=== PATIENT | male | born 2000 | race Caucasian/White ===

== ENCOUNTER 2022-02-21 19:00 | Emergency (ER) | payer MEDICAID, SELFPAY ==
[2022-02-21 19:45] VITALS: BP 144/77; PULSE 86; RESP 16; O2SAT 99; BMI 24.9
--- NOTE | 2022-02-21 21:56 | ED_ITS ---
HPI - Abdominal Pain General Chief Complaint: Abdominal Pain Stated Complaint: hernia/lower abd pain Time Seen by Provider: 02/21/22 21:54 Source: patient Mode of arrival: ambulatory Limitations: no limitations History of Present Illness HPI narrative: Patient having small lesions on the shaft of penis for last 2 weeks symptoms noticed inguinal lymph nodes enlarged and tender no penile discharge Related Data Previous Rx's Medication Instructions Recorded doxycycline hyclate 100 mg tablet 100 mg PO BID #20 tabs 02/21/22 mupirocin 2 % topical ointment 1 appl topical BID #15 grams 02/21/22 Allergies Allergy/AdvReac Type Severity Reaction Status Date / Time pineapple Allergy Anaphylaxis Verified 02/21/22 19:48 amoxicillin [AMOXICILLIN] AdvReac Unknown HIVES Verified 02/21/22 19:48 Review of Systems Review of Systems Yes all other systems are reviewed and are negative [facility] Social History Social History Advance Directives: No Advance Directives Information Provided: No Physical Exam ED Vital Signs: Vital Signs - 24 hr 02/21/22 19:45 02/21/22 22:23 Pulse Rate 86 72 Respiratory Rate 16 16 Blood Pressure 144/77 H 138/78 Pulse Oximetry 99 98 Oxygen Delivery Method Room Air BMI result Body Mass Index 24.9 Appearance: Alert. Oriented X3. No acute distress. ENT: Pharynx normal. Oral Mucosa moist Neck: Normal inspection. Neck supple. CVS: Normal heart rate and rhythm. Pulses normal. Respiratory: No respiratory distress. Equal air entry bilateral, Abdomen: Soft and nontender. Bowel sounds are present, no mass palpable, no CVA tenderness : Small lesions on the dorsum of penis clinically staph infection, bilateral tender 1 x 1 cm inguinal lymph nodes Skin: Skin warm and dry. Normal skin color. Normal skin turgor. Neuro: Oriented X 3. MDM - Abdominal Pain MDM Narrative Medical decision making narrative: Clinically patient has MRSA infection of the dorsum of the penis and bilateral inguinal lymphadenopathy secondary to that will discharge patient home on doxycycline and Bactroban ointment Discharge Plan Discharge Clinical Impression: Folliculitis, Inguinal lymphadenitis Patient Disposition: Home, Self-Care Instructions: Lymphadenopathy (ED), Folliculitis (ED) Additional Instructions: Local care of lesions on the penis as advised Antibiotic as prescribed Ibuprofen for pain Follow-up with PCP Prescriptions: New doxycycline hyclate 100 mg tablet 100 mg PO BID Qty: 20 0RF mupirocin 2 % ointment 1 appl topical BID Qty: 15 0RF Stand Alone Forms: Work/School Release Interventions: ED Discharge Assessment Last Done: 02/21/22 22:31
[2022-02-21 22:23] VITALS: BP 138/78; PULSE 72; RESP 16; O2SAT 98
== END 2022-02-21 22:34 | disposition home or self-care (01) ==
PROVIDERS: Emergency Provider Internal Medicine
DX: L73.9 Follicular disorder, unspecified (principal); I88.9 Nonspecific lymphadenitis, unspecified
CPT/HCPCS: 99283; 99284

== ENCOUNTER 2025-02-15 14:56 | Emergency (ER) | payer MEDICAID, SELFPAY ==
[2025-02-15 14:58] VITALS: BP 141/83; PULSE 68; RESP 14; TEMP 36.8; O2SAT 96; BMI 26.6
--- NOTE | 2025-02-15 15:03 | ED.WOUNDLAC ---
HPI - Wound/Laceration General Chief Complaint: Wound/Laceration Stated Complaint: leg inj with hammer Time Seen by Provider: 02/15/25 19:57 Related Data Previous Rx's ?Medication ?Instructions ?Recorded doxycycline hyclate 100 mg tablet 100 mg PO BID #20 tabs 02/21/22 mupirocin 2 % topical ointment 1 appl topical BID #15 grams 02/21/22 Allergies Allergy/AdvReac Type Severity Reaction Status Date / Time pineapple Allergy Anaphylaxis Verified 02/15/25 15:00 amoxicillin (AMOXICILLIN) AdvReac Unknown HIVES Verified 02/15/25 15:00 [facility] Social History Social History Advance Directives: No Advance Directives Information Provided: Yes Physical Exam Vital Signs: Vital Signs: Last Vital Signs Temp 98.6 F 02/15/25 18:50 Pulse 72 02/15/25 18:50 Resp 16 02/15/25 18:50 BP 137/81 02/15/25 18:50 Pulse Ox 98 02/15/25 18:50 O2 Del Method Room Air 02/15/25 14:58 BMI result Body Mass Index 26.6 Course Course Course Narrative: This is a Rapid Medical Examination (RME) performed by Isa Harkins PA-C in triage. Full HPI, ROS, assessment and treatment plan per primary provider in the Main ED. Hx: 24 yo M here w/ lac/puncture wound to right sandhu sustained by a hammer [employer]. unsure of tetanus status Plan: lac repair, tdap Reevaluation(s) Reevaluation #1: Patient left the emergency department before myself or any of the other clinicians could review or explain physical exam findings, test results, need or lack there of for additional testing, treatment options, or a treatment plan. Medications Administered Discontinued Medications Generic Name Dose Route Start Last Admin Trade Name Freq PRN Reason Stop Dose Admin Diphtheria/Tetanus/Acell Pertussis 0.5 ml 02/15/25 15:07 02/15/25 18:41 Diphth,Pertus(Acell),Tet Adult 0.5 Ml Syringe IM 02/15/25 15:08 0.5 ml .ONCE ONE Administration Discharge Plan Discharge Clinical Impression: Laceration Patient Disposition: Left W/O Completing Treatment Prescriptions: No Action doxycycline hyclate 100 mg tablet 100 mg PO BID Qty: 20 0RF mupirocin 2 % ointment 1 appl topical BID Qty: 15 0RF Discharge Date/Time: 02/15/25 20:19
[2025-02-15] MEDS: Diphth,Pertus(ACell),Tet Adult 0.5 ML SYRINGE IM (18:41)
[2025-02-15 18:50] VITALS: BP 137/81; PULSE 72; RESP 16; TEMP 37; O2SAT 98
--- NOTE | 2025-02-15 20:19 | PC.NURSE ---
Pt and family decided it was too long to wait for a provider. LWCT.
--- OUTSIDE RECORDS SUMMARY | 2025-02-15 22:24 | XMS_ITS | Clinical Summary ---
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 08/19/2019 Active doxycycline (Vibra-Tabs) 100 MG tablet Take 100 mg by mouth 2 times daily. 02/22/2022 Active Active Problems No known active problems Family History Medical History Relation Name Comments ADD / ADHD Brother Asthma Brother Diabetes Maternal Grandfather Macular degeneration Maternal Grandmother Relation Name Status Comments Brother Maternal Grandfather Maternal Grandmother Social History Tobacco Use Types Packs/Day Years Used Date Smoking Tobacco: Never Smokeless Tobacco: Never Tobacco Cessation:Counseling Given: Not Answered Sex and Gender Information Value Date Recorded Sex Assigned at Male 02/24/2022 10:16 AM EDT Legal Sex Male 10:16 AM EDT Gender Identity Male 02/24/2022 10:16 AM EDT Sexual Orientation Straight 02/24/2022 10 :16 AM EDT Plan of Treatment Health Maintenance Due Date Last Done Comments Depression Screening 1999 HIV Screening 1999 SDOH Screening 1999 Disability Screening 1999 Alcohol/Substance Use Screening 2011 Family Planning (PISQ) 08/13/2014 Hepatitis C Screening 08/13/2017 DTaP/Tdap/Td Vaccines (7 - Td or Tdap) 07/25/2020 07/25/2010, 09/05/2003, 02/09/2001, Additional history exists Tobacco Screening 05/10/2023 05/10/2022 COVID-19 Vaccine ( season) 2024 08/27/2021, 07/30/2021 Influenza Vaccine (#1) 2024 5, 05/05/2014, 01/12/2012, Additional history exists Zoster Vaccines (1 of 2) 08/13/2049 RSV Patients and Patients Aged 60 years or older (1 - 1-dose 75+ series) 08/13/2074 Hepatitis B Vaccines Completed 03/03/2000, 1999, 1999 HIB Vaccines Completed 11/16/2000, 10/1999, 1999, Additional history exists Pneumococcal Vaccine: Pediatrics (0 to 5 Years) and At-Risk Patients (6 to 49) Years Aged Out 02/09/2001, 06/09/2000, 03/03/2000, Additional history exists No longer eligible based on patient's age to complete this topic IPV Vaccines Completed 09/05/2003, 07/27, 1999, Additional history exists Meningococcal Vaccine Aged Out 01/12/2012 No aria nandini eligible based on patient's age to complete this topic HPV Vaccines Completed 05/05/2014, 06/26, 01/12/2012 Hepatitis A Vaccines Aged Out No long er eligible based on patient's age to complete this topic Meningococcal B Vaccine Aged Out No l onger eligible based on patient's age to complete this topic RSV under 20 months Aged Out No longe r eligible based on patient's age to complete this topic Rotavirus Vaccines Aged Out No longer eligible based on patient's age to complete this topic Insurance [facility] [id number]
== END 2025-02-15 20:19 | disposition left against medical advice (07) ==
PROVIDERS: Emergency Provider Student in an Organized Health Care Education/Training Program
DX: S81.811A Laceration without foreign body, right lower leg, initial encounter (principal); W22.8XXA Striking against or struck by other objects, initial encounter; Y93.9 Activity, unspecified; Y92.9 Unspecified place or not applicable; Z23 Encounter for immunization; Z53.29 Procedure and treatment not carried out because of patient's decision for other reasons
CPT/HCPCS: 90471; 90715; 99282; 99284